=== PATIENT | female | born 1970 | race Asian ===

== ENCOUNTER 2020-10-08 19:08 | Observation (INO) | payer MEDICARE, MEDICAID ==
[2020-10-08 20:02] LABS: #Eosinphils 0.1 10x3/uL (0.0-0.5); #Monocytes 0.7 10x3/uL (0.0-1.1); #Neutrophils 5.6 10x3/uL (1.5-8.4); %Basophils 0.3 % (0.0-2.0); %Eosinophils 0.8 % (0.0-6.0); %Monocytes 7.5 % (0.0-10.0); %Neutrophils 61.7 % (40.0-75.0); Hemoglobin 13.2 g/dL (12.0-15.5); Mean Corpuscular HGB CONC 31.9 g/dL (32.0-36.0); Mean Corpuscular Hemoglobin 30.3 pg (27.0-33.0); Mean Platelet Volume 9.8 fl (7.4-10.4); Platelet Count 320 10x3/uL (150-450); RBC Distribution Width 13.9 % (11.5-14.5); Red Blood Cell (RBC) Count 4.36 10x6/uL (3.90-5.03); White Blood Cell (WBC) Count 9.1 10x3/uL (3.5-10.5)
[2020-10-08 20:18] LABS: ALT (SGPT) 34 U/L (8-55); AST (SGOT) 21 U/L (5-34); Albumin 4.2 g/dL (3.5-5.0); Alkaline Phosphatase 103 U/L (40-110); Anion Gap 14 mmol/L (10-20); BUN (Urea Nitrogen) 26 mg/dL (7.0-18.7); Bilirubin, Total 0.4 mg/dL (0.2-1.2); Calc. Creatinine Clearance 0 mL/min (70-130); Calcium 9.3 mg/dL (7.8-10.44); Carbon Dioxide 28 mmol/L (22-29); Chloride 103 mmol/L (98-107); Globulin 2.8 g/dL (2.4-3.5); Glucose 217 mg/dL (70-105); Potassium 3.9 mmol/L (3.5-5.1); Sodium 141 mmol/L (136-145)
[2020-10-08] MEDS ORDERED: Zolpidem Tartrate 5 MG TAB PO PRN (22:42)
[2020-10-08] MEDS ORDERED: Senokot S 8.6-50 MG TAB PO PRN (22:42)
[2020-10-08] MEDS ORDERED: Guaifenesin DM 100-10/5 ML UDCUP PO PRN (22:42)
[2020-10-08] MEDS ORDERED: Calcium Carbonate 500 MG ChewTAB PO PRN (22:42)
[2020-10-08] MEDS ORDERED: Acetaminophen 325 MG TAB PO PRN (22:42)
[2020-10-08] MEDS ORDERED: HYDROcodone/Acetaminophen 5/325 mg Tablet PO PRN (22:42)
[2020-10-08] MEDS ORDERED: Ondansetron PF 4 MG/2 ML Vial IVP PRN (22:42)
[2020-10-08] MEDS ORDERED: Dextrose 5% in Water 1,000 ML IV PRN (22:43)
[2020-10-08] MEDS ORDERED: Dextrose 50% Abboject 50 ML SYRINGE SLOW IVP PRN (22:43)
[2020-10-08] MEDS ORDERED: HumaLOG 300 UNITS/3 ML VIAL SC PRN (22:43)
[2020-10-08] MEDS ORDERED: Nitroglycerin 2% Ointment 1 INCH/1 GM Packet TOP SCH (22:45)
[2020-10-08] MEDS ORDERED: Albuterol Sulfate 2.5 mg/3 ml Neb NEB PRN (22:46)
[2020-10-08] MEDS ORDERED: Azelastine 137 MCG/Spray 30 ML NS PRN (22:47)
[2020-10-08] MEDS ORDERED: Sodium Chloride 0.9% 500 ML IV SCH (23:15)
[2020-10-09 01:11] LABS: SARS-CoV-2 NAA Rapid Test Not Detected (NotDetected)
[2020-10-09] MEDS ORDERED: Clopidogrel Bisulfate 75 MG TAB ONE (07:37)
[2020-10-09] MEDS ORDERED: HumaLOG 300 UNITS/3 ML VIAL ONE (07:38)
[2020-10-09] MEDS ORDERED: Lantus 1000 UNITS/10 ML VIAL ONE (07:38)
[2020-10-09] MEDS ORDERED: Enoxaparin Sodium 40 MG/0.4 ML SYRINGE ONE (07:38)
[2020-10-09] MEDS: Pancrelipase DR 12,000 1 CAP PO SCH ×2 (08:10→12:00)
[2020-10-09 08:25] LABS: Anion Gap 15 mmol/L (10-20); BUN (Urea Nitrogen) 18 mg/dL (7.0-18.7); Calc. Creatinine Clearance 0 mL/min (70-130); Calcium 9.3 mg/dL (7.8-10.44); Carbon Dioxide 26 mmol/L (22-29); Cardiac Risk 2.9 (Less than 4.5); Chloride 103 mmol/L (98-107); Cholesterol 209 mg/dl (< 200 Desired); Glucose 235 mg/dL (70-105); HDL Cholesterol 73 mg/dL (>60 Neg Risk); LDL Cholesterol, Calculated 102 mg/dL; Potassium 3.9 mmol/L (3.5-5.1); Sodium 140 mmol/L (136-145); Triglycerides 170 mg/dL (Less than 150)
[2020-10-09] MEDS ORDERED: Isosorbide Dinitrate 10 MG TAB PO SCH (09:00)
[2020-10-09] MEDS ORDERED: Clopidogrel Bisulfate 75 MG TAB PO SCH (09:00)
[2020-10-09] MEDS ORDERED: DAPAGLIFLOZIN PROPANEDIOL 10 MG PO SCH (09:00)
[2020-10-09] MEDS ORDERED: Oxybutynin 5 MG TAB PO SCH (09:00)
[2020-10-09] MEDS ORDERED: Fluticasone Propionate Nasal Spray 16 gm Bottle NASAL SCH (09:00)
[2020-10-09] MEDS ORDERED: lamoTRIgine 100 MG TAB PO SCH (09:00)
[2020-10-09] MEDS ORDERED: Insulin Glargine 10 UNITS in Pre-Filled Syringe 1 EACH SC SCH (09:00)
[2020-10-09] MEDS ORDERED: Lantus 1000 UNITS/10 ML VIAL SC SCH (09:00)
[2020-10-09] MEDS ORDERED: Enoxaparin Sodium 40 MG/0.4 ML SYRINGE SC SCH (09:00)
[2020-10-09 10:47] VITALS: BP 95/55; TEMP 98.8
[2020-10-09 11:32] LABS: Hemoglobin A1c 9.5 % (4.0-6.0)
[2020-10-09 12:20] VITALS: BMI 20.7
[2020-10-09] MEDS ORDERED: Atorvastatin Calcium 10 MG TAB PO SCH (21:00)
== END 2020-10-09 16:30 | disposition home or self-care (01) ==
LOC: CSHERS 19:08 → CSHERHOLD 10-09 00:47 → CSHTELE 10-09 11:42
PROVIDERS: ADMIT Student in an Organized Health Care Education/Training Program; ATTEND Family Medicine
DX: R07.9 Chest pain, unspecified (principal); J96.11 Chronic respiratory failure with hypoxia; J45.909 Unspecified asthma, uncomplicated; E11.22 Type 2 diabetes mellitus with diabetic chronic kidney disease; I12.9 Hypertensive chronic kidney disease with stage 1 through stage 4 chronic kidney disease, or unspecified chronic kidney disease; N18.2 Chronic kidney disease, stage 2 (mild); Z99.81 Dependence on supplemental oxygen; E78.5 Hyperlipidemia, unspecified; Z79.899 Other long term (current) drug therapy; Z90.49 Acquired absence of other specified parts of digestive tract; Z20.822 Contact with and (suspected) exposure to COVID-19; Z86.16 Personal history of COVID-19
CPT/HCPCS: 71045; 71275; 80048; 80053; 80061; 82962; 83036; 83880; 84484 ×2; 85025; 93005; 94760; 96372; 99285; G0378 ×3; U0002; 36416; J1650; J1815

== ENCOUNTER 2023-11-24 18:50 | Emergency (ER) | payer MEDICARE, OTHER ==
[2023-11-24] MEDS ORDERED: Erythromycin Base 0.5% Oint 1 GM TUBE ONE (21:08)
== END 2023-11-24 21:07 | disposition home or self-care (01) ==
LOC: CSHERS 18:50
DX: S05.02XA Injury of conjunctiva and corneal abrasion without foreign body, left eye, initial encounter (principal); I10 Essential (primary) hypertension; E11.9 Type 2 diabetes mellitus without complications; Z79.4 Long term (current) use of insulin; X58.XXXA Exposure to other specified factors, initial encounter
CPT/HCPCS: 99283